=== PATIENT | female | born 1990 | race Caucasian/White ===

== ENCOUNTER 2019-11-29 10:11 | Emergency (ER) | payer MEDICAID ==
[~2019-11-29] VITALS: Ht 167.6 cm; Wt 65.8 kg
[2019-11-29 10:14] VITALS: BP 109/65
--- NOTE | 2019-11-29 10:30 | NUR ---
29 Y/O FEMALE FROM HOME C/O LOWER BACK PAIN X 2 DAYS S/P FALL. LOWER ABD PAIN WITH DIARRHEA. STATES 10/10 ABD AND BACK PAIN. STATES POSSIBILITY OF AND DOES NOT WANT TO FOLLOW THROUGH WITH IF POSITIVE DUE TO PAST MED HX. RR EVEN AND UNLABORED, AWAKE AND ALERT. VSS MEDHX: BIPOLAR ALLERGIES: NKA
--- NOTE | 2019-11-29 10:55 | NUR ---
LAB AT BEDSIDE
--- NOTE | 2019-11-29 11:04 | NUR ---
DR RUEDA AT BEDSIDE EXAMINING PT
--- NOTE | 2019-11-29 11:07 | NUR ---
ULTRASOUND AT BEDSIDE
[2019-11-29 11:12] LABS: APPEARANCE,URINE CLEAR (CLEAR); BILIRUBIN,URINE NEGATIVE (NEGATIVE); BLOOD, URINE NEGATIVE (NEGATIVE); COLOR,URINE YELLOW (YELLOW); LEUKOCYTE ESTERASE ,URINE NEGATIVE (NEGATIVE); NITRITE, URINE NEGATIVE (NEGATIVE); PH,URINE 7.5 (5.0-9.0); UGLUCOSE NEGATIVE (NEGATIVE)
[2019-11-29 11:13] LABS: BASOPHILS # (AUTO) 0.1 K/uL (0.00-0.22); BASOPHILS % (AUTO) 1.2 % (0.0-2.0); EOSINOPHILS # (AUTO) 0.3 K/uL (0-0.4); EOSINOPHILS % (AUTO) 3.4 % (0.0-4.0); HEMATOCRIT 37.5 % (36-48); HEMOGLOBIN 12.3 g/dL (12.0-16.0); LYMPHOCYTES % (AUTO) 23.7 % (20.5-51.1); MEAN CORPUSCULAR HEMOGLOBIN 30 pg (27-31); MEAN CORPUSCULAR HGB CONC 33 g/dL (33-37); MEAN CORPUSCULAR VOLUME 90.9 fL (80-94); MONOCYTES # (AUTO) 0.5 K/uL (0.8-1.0); MONOCYTES % (AUTO) 5.6 % (1.7-9.3); NEUTROPHILS # (AUTO) 5.5 K/uL (1.8-7.7); NEUTROPHILS % (AUTO) 66.1 % (42.2-75.2); PLATELET COUNT (AUTO) 277 K/uL (140-450); RED BLOOD CELL COUNT(AUTO) 4.12 MIL/uL (4.20-5.40); RED CELL DISTRIBUTION WIDTH 14.2 % (11.6-13.7); WHITE BLOOD COUNT (AUTO) 8.3 K/uL (4.8-10.8)
[2019-11-29 11:16] LABS: RBC,URINE 0 /HPF (0-5); WBC,URINE 0-5 /HPF (0-5)
--- NOTE | 2019-11-29 11:57 | NUR ---
PT RESTING IN BED AWAKE AND ALERT. RR EVEN AND UNLABORED. VSS
[2019-11-29 12:40] VITALS: BP 112/67
--- NOTE | 2019-11-29 12:41 | NUR ---
Patient discharged with v/s stable. Written and verbal after care instructions given and explained. Patient verbalized understanding. Ambulatory with steady gait. All questions addressed prior to discharge. Advised to follow up with PMD.
== END 2019-11-29 12:41 | disposition home or self-care (01) ==
LOC: MED 10:11
DX: O20.0 Threatened abortion (principal)
CPT/HCPCS: 36415; 76817; 81001; 81025; 84702; 85025; 86900; 86901; 99284; Q0092